=== PATIENT | female | born 1970 | race Caucasian/White ===

== ENCOUNTER 2016-06-05 08:59 | Day surgery (SDC) | payer OTHER ==
[2016-06-05] VITALS (8 sets, daily range): BP systolic 100–145; BP diastolic 68–83; PULSE 88–99; RESP 15–18; O2SAT 93–99
[~2016-06-05] VITALS: Ht 177.8 cm; Wt 75.8 kg
[~2016-06-05 08:59] MED LIST: ADAL40PE2 SQ; ARIP10TA14 PO; ASPI-973 PO; BUDE3CAP7 PO; CHOL500050 PO; CYA1000I IM; CYCL10TA9 PO; Clindamycin 900 mg/50 mL D5W IV ONE; DEXL30CA3 PO; DIPH1TAB PO; INFL100V IV; INSLIS SUBQ; LEVO75TA4 PO; LISI40TA PO; LORA2TAB PO; METO-274 PO; ONDA4TAB9 PO; OXYC-466 PO; PRAV40TA PO; SERT100T9 PO
[2016-06-05] MEDS ORDERED: Lactated Ringer's 1,000 ML IV ONE ×2 (09:00→11:46)
[2016-06-05] MEDS ORDERED: Propofol 10,000 mCg/mL 20 mL Inj ONE (09:00)
[2016-06-05] MEDS ORDERED: Ondansetron 2 mg/mL 2 mL Inj ONE (09:00)
[2016-06-05] MEDS ORDERED: Lidocaine PF 1% 30 mL Inj ONE (09:00)
[2016-06-05] MEDS ORDERED: GABA600T2 PO (09:56)
[2016-06-05] MEDS ORDERED: ASPI325T32 PO (09:56)
[2016-06-05 10:01] LABS: BASOPHILS % (AUTO) 0.5 % (0-3); EOSINOPHILS % (AUTO) 3.3 % (0-5); MONOCYTES % (AUTO) 9.9 % (4-12); Mean Corpuscular Hemoglobin 29.4 pg (27.0-35.0); Mean Corpuscular Volume 90.6 fL (81-100); NEUTROPHILS % (AUTO) 58.5 % (40-74); Platelet Count 300 bil/L (150-400)
--- NOTE | 2016-06-05 10:53 | PCM.HPANE ---
Patient Data Surgeon Admitting Provider: Attending Provider:Sly Cramer MD Primary Care Physician:Bart Mckeon MD Other Provider:Tu Nguyen Anesthesia Reason for Visit Left Carpal Tunnel Syndrome Ht/WT & BMI Height (Feet): 5 Height (Inches): 10.00 Weight (Kilograms): 75.8 Body Mass Index 23.00 Allergies Coded Allergies: Cephalosporins (Verified Allergy, Severe, Rash, 06/03/16) Penicillins (Verified Allergy, Severe, HIVES, 06/03/16) tetracycline (Verified Allergy, Severe, HIVES, 06/03/16) cephalexin (Verified Allergy, Intermediate, REDNESS, 06/03/16) Estrogens (Verified Allergy, Unknown, UNKNOWN, 06/03/16) Sulfa (Sulfonamide Antibiotics) (Verified Allergy, Unknown, UNKNOWN, ) divalproex sodium (Verified Allergy, Unknown, UNKNOWN, 06/03/16) hydromorphone (Verified Adverse Reaction, Severe, HALLUCINATIONS, 06/03/16) Uncoded Allergies: PROPRANOLOL HCL (Generic Allergy) (Allergy, Unknown, UNKNOWN, 06/03/16) Past Anesthesia History Anesthesia History: Positive for:: Anesthesia Reactions (REACTION TO DILAUDED) , Denies:: Abnormal Airway, Difficult Intubation, Fam Anesthesia Reaction, Fam Malignant Hypertherm, Malignant Hyperthermia Diabetes History Hx Diabetes?: Yes Type of Diabetes: Type I Glycemic Control: Insulin Pump Current Bedside Blood Glucose: 168 MRSA MRSA: No Medications Blood Thinner: Aspirin Hypertension Medication: Yes (LISINOPRIL) Home Meds Incl Beta Emeterio: Yes Date Beta Emeterio Taken: Jun 04, 2016 Time Beta Emeterio Taken: 0800 Reported Medications Gabapentin 600 Mg Wrlaof680 Mg PO BID Ref 0 06/05/16 Aspirin 325 Mg Xnrthe351 Mg PO #1 BOTTLE 06/05/16 Infliximab (Remicade)10 Mg/Ml Dzw856 Mg IV DIRECTED next dose is three weeks from now 04/21/16, then every 8 weeks 04/21/16 Cyanocobalamin (Cyanocobalamin Injection)1,000 Mcg/1 Ml Vial1,000 Mcg IM Monthly 04/21/16 Cholecalciferol (Vitamin D3) (Vitamin D)50,000 Unit CapsuleUnknown Dose PO 02/11/16 Aspirin 81 Mg Gxqgiw44 Mg PO DAILY Ref 0 12/13/16 Levothyroxine 75 Mcg Lmhcqn37 Mcg PO DAILY Ref 0 02/11/16 Dexlansoprazole ER (Dexilant)30 Mg Msvzuil72 Mg PO DAILY Ref 0 02/11/16 Metoprolol Succinate ER 100 Mg Tab.er.90b435 Mg PO DAILY Ref 0 02/11/16 oxyCODONE-Acetaminophen 10-325 mg 1 Each Tablet1 Tablet PO Q6H PRN For Pain Ref 0 02/07/16 Cyclobenzaprine 10 Mg Htyupw18 Mg PO HS PRN Spasm Ref 0 02/07/16 Insulin Human Lispro (HumaLOG U100 Insulin Vial)100 Unit/Ml Unit1 Unit SUBQ continuosly #1 VIAL Ref 0 Via pump 07/08/15 Ondansetron ODT (Zofran ODT)4 Mg Tab.rapdis4 Mg PO Q8 PRN For Nausea 03/06/14 Lorazepam 2 Mg Tablet2 Mg PO QID PRN For Anxiety 03/06/14 Aripiprazole (Abilify)10 Mg Jddxlt22 Mg PO DAILY 03/06/14 Lisinopril 40 Mg Gwdekx83 Mg PO DAILY 11/21/13 Budesonide EC 3 Mg Capdr...er3 Tab PO QAM PRN crohns 11/21/13 Diphenoxylate/Atropine 2.5-0.025 mg (Lomotil 2.5-0.025 mg)1 Each Tablet2 Each PO 4-5Xday PRN For Diarrhea or Loose Stool 11/21/13 Pravastatin 40 Mg Sevlud51 Mg PO DAILY 11/21/13 Sertraline HCl (Sertraline)100 Mg Ctnoye599 Mg PO DAILY 11/21/13 Discontinued Reported Medications Adalimumab (Humira Crohn's)40 Mg/0.8 Ml Pen.ij.kit0.8 Ml SQ weekly 04/02/15 History History of ENT Problems?: No HEENT History: Positive for:: Hearing Problem ([place] - MILD) Denies:: Abnormal Airway Cataracts Difficult Intubation Dysphagia Sinus Problem Denture Type: Full- Upper Full- Lower Hx of Heart Problems?: Yes Cardiovascular History: Positive for:: Chest Pain ( MPS WNL) Heart Murmur (HX OF BUT NONE NOTED ON PREOP H&P) Hypertension (HYPERLIPIDEMIA) Denies:: AICD Atrial Fibrillation Cardiac Surgery (Heart Catherization, 2013) Congestive Heart Failure Edema Irregular Heartbeat Pacemaker Thrombophlebitis Valvular Heart Disease Other Cardiac History: HX OF ANEMIA REQUIRES INTERMITTANT IRON INFUSIONS (ORAL IRON INEFFECTIVE) R/T REMAICADE INFUSIONS EVERY 8 WEEKS Hx of Respiratory Problem?: Yes Respiratory History: Positive for:: Tuberculosis (FINISHED LATENT TB TX 2016) Denies:: Asthma COPD Chest Surgery Cough Dyspnea Emphysema Hemoptysis Oxygen Administration Pneumonia Use of C-PAP Machine (HX OF SLEEP STUDY) Hx Neurologic Problems?: Yes Neurological History: Positive for:: Dizziness (DIZZINESS) Headaches (migranes botox injections last one 09/30/2015) Seizures (secondary to hypoglycemia) Denies:: Alzheimer's Disease CVA Dementia (+ COGNITIVE IMPAIRMENT) Parkinson's Disease Hx of GI Problems?: Yes Gastrointestinal History: Positive for:: Gall Bladder Disease (OLE) Gastroesphageal Reflux (HX PUD) Gastrointestinal Bleeding Heartburn Hiatal Hernia Rectal Bleeding (HX CROHN'S, HEMORRHOIDS) Denies:: Cirrhosis Diverticulitis Hepatitis Hx of Problems?: Yes Genitourinary History: Positive for:: Kidney Stones (HX OF) Urinary Tract Infection (HX OF) Female Hx: Denies:: Currently (S/P C/S X2) Endometriosis Pelvic Inflammatory Problems with Breasts? Skin History: Positive for:: History Skin Disorders? (skin issues with crohns currently in belly button) Denies:: Pressure Ulcers Hx Musculoskeletal Problems?: Yes Musculoskeletal History: Positive for:: Back Injury (spasms) Musculoskeletal Trauma (S/P BILAT ORIF WRISTS (GLF)) Denies:: Joint Replacement Hx of Psycho/Social Problems?: Yes Psycho Social History: Positive for:: Anxiety Hx Depression Suicide Attempt (2012) Denies:: Bipolar Disorder Hx Surgeries?: Yes (b/l orif wrists,c/s x2,hyst,nesha) Hx Any Other Health Problems?: Yes Other History: Positive for:: Endocrine Disease Hospitalization (ME, DKA) Thyroid Disease (Hypothyrodism) Denies:: Cancer History Blood Transfusions: Positive for:: Blood Transfusions Denies:: Blood Transfuse Reaction Hx Diabetes: YesBedside Blood Glucose: 168 Hx Alcohol Use: NoHx Substance Use: No Smoking Status: Current Every Day Smoker Heavy Tobacco Smoker Have You Smoked inLast 12 mo: Yes Stop/Bang Treated for Sleep Apnea?: No Do You Have a CPAP Machine?: No S-Snoring: Do You Snore Loudly: No T-Tired: feel tired, fatigued: Yes O-Obsered: Observed not breath: No P-Blood Pressure: treated: Yes B- Body Mass Index > 35 kg/m2: No A- Age over 50: No N- Neck Large Circumference: No G- Gender Male: No LARS Total Score: 2 LARS Risk Assessment: Low Risk, <3 Yes Risk Assessment Category Category 1A: Patient has history of documented sleep apnea, and HAS NOT received any narcotic, sedative or anesthesia administration during this stay. Category 1B: Patient has history of documented sleep apnea, and HAS received any narcotic , sedative or anesthesia administration during this stay Category 2: Patient has SUSPECTED Obstructive Sleep Apnea, and HAS received any narcotic , sedative or anesthesia administration during this stay. Category 3: Patient has SUSPECTED Obstructive Sleep Apnea and HAS NOT received narcotic, sedative or anesthesia administration during this stay. Category 4: Outpatient in Procedural Areas with known sleep apnea or who screen positive for High Risk via the STOP/BANG questionnaire. Exam Exam Vital Signs Vital Signs Date Time Temp Pulse Resp B/P Pulse Ox O2 Delivery O2 Flow Rate FiO2 06/05/16 09:31 36.4 99 18 145/83 97 Room Air General Appearance: Alert, Oriented X3, Cooperative, No Acute Distress HEENT/AIRWAY: MP 2 Lungs: Clear to Auscultation, Normal Air Movement Heart: Exam Unremarkable, Regular Rate/Rhythm, No Murmurs/Rubs/Gallops Meds/Labs/Diagnostics Admission Meds Current Medications Lactated Ringer's (Lr) 1,000 ml @ ud STK-MED ONCE IV Last administered on t 09:00; Start 06/05/16 at 09:00; Stop 06/05/16 at 09:12; Status DC Bedside Blood Glucose: 168 Labs Test 06/05/16 09:40 White Blood Count 7.8th/mm3 (3.8-10.1) Red Blood Count 4.49mil/mm3 (3.90-5.20) Hemoglobin 13.2g/dL (12.0-15.6) Hematocrit 40.7% (35.0-46.0) Mean Corpuscular Volume 90.6fL (81-100) Mean Corpuscular Hemoglobin 29.4pg (27.0-35.0) Mean Corpuscular Hemoglobin Concent 32.4% (32.0-37.0) Red Cell Distribution Width 17.7% (12.3-15.4) Platelet Count 300bil/L (150-400) Neutrophils (%) (Auto) 58.5% (40-74) Lymphocytes (%) (Auto) 27.7% (14-46) Monocytes (%) (Auto) 9.9% (4-12) Eosinophils (%) (Auto) 3.3% (0-5) Basophils (%) (Auto) 0.5% (0-3) Sodium Level 135mEq/L (134-144) Potassium Level 4.0mEq/L (3.5-5.2) Chloride Level 97mEq/L (97-108) Carbon Dioxide Level 23mmol/L (18-29) Blood Urea Nitrogen 13mg/dL (6-24) Creatinine 0.63mg/dL (0.57-1.00) Estimat Glomerular Filtration Rate 146mL/min (>59) Glucose Level 182mg/dL (60-99) Calcium Level 8.9mg/dL (8.5-10.1) Total Bilirubin < 0.2mg/dL (0.0-1.2) Aspartate Amino Transf (AST/SGOT) 14U/L (0-50) Alanine Aminotransferase (ALT/SGPT) 10U/L (0-32) Alkaline Phosphatase 60U/L (25-150) Total Protein 6.2g/dL (6.4-8.4) Albumin 3.7g/dL (3.4-5.0) Plan Impression Patient chart reviewed, patient interviewed and anesthestic plan with risks, benefits, and alternatives discussed, and informed consent obtained. NPO Status: mn ASA Physical Status: ASA3 Severe Disease Anesthetic Plan: GA Bene/Risks/Altern/Consents: Yes HP Complete Prior to Induction: Yes Gulshan Acevedo MD Jun 05, 2016 10:52
[2016-06-05] MEDS ORDERED: Bupivacaine-MPF 0.5% 30 mL Inj INFILTRATE ONE (11:07)
[2016-06-05] MEDS ORDERED: Lactated Ringer's 500 ML IV PRN (11:24)
[2016-06-05] MEDS ORDERED: Lactated Ringer's 1,000 ML IV SCH (11:24)
[2016-06-05] MEDS ORDERED: MetoCLOpramide 5 mg/mL 2 mL Inj IVPUSH PRN (11:25)
[2016-06-05] MEDS ORDERED: EPHEDrine Sulfate 50 mg/mL Inj IVPUSH PRN (11:25)
[2016-06-05] MEDS ORDERED: Ondansetron 2 mg/mL 2 mL Inj IVPUSH PRN (11:25)
[2016-06-05] MEDS ORDERED: Phenylephrine 10,000 mCg/mL Inj IVPUSH PRN (11:25)
--- NOTE | 2016-06-05 12:19 | PCM.ANEP2 ---
Post Anesthesia Evaluation ASA/CMS Post Anesthesia Date of Service: Jun 05, 2016 VS in Patient's Normal Range?: Yes Resp Stable; Airway Patent?: Yes CV Function & Hydration Stable: Yes Mental Status Recovered?: Yes Pain control Satisfactory?: Yes N/V Control Satisfactory?: Yes Gulshan Acevedo MD Jun 05, 2016 12:19
--- NOTE | 2016-06-05 12:19 | PCM.ANEP1 ---
Post Anesthesia Phase 1 PACU Phase 1 Assessment Date of Service: Jun 05, 2016 Vital Signs 36.1 106/74 101 18 100% FM Anesthetic Administered: GA Level of Alertness: Sleepy, easy to arouse RAMIREZ's with Equal Strength: Yes Pain: No Nausea or Vomiting: No Oxygen Delivery: Simple Mask Lungs: Clear to Auscultation, Normal Air Movement Gulshan Acevedo MD Jun 05, 2016 12:19
[2016-06-05] MEDS ORDERED: oxyCODONE-Acetamin 5-325 mg Tablet PO PRN (12:30)
--- NOTE | 2016-06-05 15:16 | OP ---
[address] [address] OPERATIVE REPORT PATIENT: FUENTES PIERRE : 1970 MR#: [id number] ADMIT: 06/05/2016 JOB ID: [id number] DATE OF SURGERY: 06/05/2016 PREOPERATIVE DIAGNOSIS(ES): Left carpal tunnel syndrome. ICD 10 code G 56.02. POSTOPERATIVE DIAGNOSIS(ES): Left carpal tunnel syndrome. ICD 10 code G 56.02. PROCEDURE: Left carpal tunnel release. CPT code 97590. SURGEON: Dr. Sly Cramer. ANESTHESIA: General. ESTIMATED BLOOD LOSS: 2 mL. SPONGE AND NEEDLE COUNT: Correct. COMPLICATIONS: None. INDICATIONS: This is a 45-year-old type 1 insulin dependent diabetic who sustained significantly comminuted left distal radial intra-articular fracture last year requiring open reduction and internal fixation. She when on to subsequently develop carpal tunnel symptoms on the left. She also had a significant right distal radial fracture but it was not quite as severe as the left. She did require surgery on the right wrist but she did not develop any carpal tunnel symptoms on the right. PROCEDURE IN DETAIL: Under adequate general anesthetic, well-padded pretested tourniquet was applied to the left upper extremity. The left arm was prepped and draped in a sterile fashion. The arm was elevated, exsanguinated, tourniquet inflated to 250 mmHg. Incision was fashioned just ulnar to the thenar crease. Care was taken to protect the palmar cutaneous branch of the median nerve as well as the ulnar nerve and artery more ulnarward. Palmar fascia was incised. Proximal portion of the transverse carpal ligament was incised. A [place] elevator was placed underneath the ligament. The ligament was released from a proximal to distal direction. Care was taken to protect the superficial palmar arch distally. The nerve was inspected, and found to be somewhat flattened with an hourglass deformity. The recurrent motor branch of the median nerve was identified. It was relatively large. The area was explored to rest assured that there was no compression of the recurrent motor branch under the fascia. Attention was next turned proximally to the antebrachial cutaneous fascia. The skin was gently elevated from the subcutaneous tissue. She had had a prior surgical incision that was slightly more radial. There was only a small amount of adhesion in this area. With the skin gently elevated and held with retractors, I was able to see the antebrachial cutaneous fascia under direct visualization. The wrist was placed in slight flexion to move the nerve out of the way and a [place] elevator was placed on the top of the nerve to protect the nerve. The antebrachial cutaneous fascia was then released with the scissors. Again, care was taken to protect the palmar cutaneous branch of the median nerve. The wound was irrigated with saline. Infiltrated with 0.5% plain Marcaine. Tourniquet was released. Afterwards there was some hyperemia noted in the nerve. Skin was reapproximated with interrupted horizontal mattress sutures of 4-0 nylon. Xeroform dry sterile dressings were applied and the patient was placed in a well-padded volar fiberglass splint. The patient was taken to recovery room in stable condition. Sponge and needle count correct. PLAN: The patient was discharged to home on clindamycin 300 mg p.o. q.8 hours and Percocet 10-325. She has been on Percocet 10-325 for other chronic pain issues. She is encouraged to do gentle range of motion of the fingers. She should avoid heavy gripping or lifting for six weeks. Will be seen in the office in two weeks for suture removal and may begin wrist range of motion and be just changed to a Velcro wrist support. CC: [email or web address] CC: Yamila Mcintyre
== END 2016-06-05 23:59 | disposition home or self-care (01) ==
LOC: SAS 08:59
PROVIDERS: ATTEND Orthopaedic Surgery
DX: G56.02 Carpal tunnel syndrome, left upper limb (principal); I10 Essential (primary) hypertension; E11.9 Type 2 diabetes mellitus without complications; R42 Dizziness and giddiness; K21.9 Gastro-esophageal reflux disease without esophagitis; F41.9 Anxiety disorder, unspecified; F17.210 Nicotine dependence, cigarettes, uncomplicated; Z79.82 Long term (current) use of aspirin; Z79.899 Other long term (current) drug therapy; Z79.4 Long term (current) use of insulin
CPT/HCPCS: 36415; 64721; 80053; 85025; J2405; J7120

== ENCOUNTER 2016-08-13 09:14 | Inpatient (IN) | payer OTHER ==
[~2016-08-13] VITALS: Ht 177.8 cm; Wt 76.1 kg
[2016-08-13] VITALS (10 sets, daily range): BP systolic 152–194; BP diastolic 74–98; PULSE 78–101; RESP 12–18; O2SAT 95–99
[~2016-08-13 09:14] MED LIST changes: -ADAL40PE2 SQ; +ASPI325T32 PO; -Clindamycin 900 mg/50 mL D5W IV ONE; +GABA600T2 PO
[2016-08-13] MEDS ORDERED: 0.9% Sodium Chloride 1,000 ML IV ONE (09:50)
[2016-08-13] MEDS ORDERED: Ondansetron 2 mg/mL 2 mL Inj IVPUSH ONE (09:50)
[2016-08-13] MEDS ORDERED: LORA2TAB PO (09:50)
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
[2016-08-13 10:24] LABS: BASOPHILS % (AUTO) 0.7 % (0-3); EOSINOPHILS % (AUTO) 2.7 % (0-5); MONOCYTES % (AUTO) 7.8 % (4-12); Mean Corpuscular Hemoglobin 30.2 pg (27.0-35.0); Mean Corpuscular Volume 92.4 fL (81-100); NEUTROPHILS % (AUTO) 55.7 % (40-74); Platelet Count 311 bil/L (150-400)
[2016-08-13 10:50] LABS: ERYTHROCYTE SEDIMENTATION RATE 7 mm/hr (0-32)
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
[2016-08-13] MEDS ORDERED: LidocaineVisc 2%:Antacid 1:1 10 mL Syringe PO ONE (12:30)
[2016-08-13] MEDS ORDERED: Promethazine Inj 25 MG in 0.9% Sodium Chloride-Pha MIX 100 ML IV ONE (14:25)
[2016-08-13] MEDS ORDERED: 0.9% Sodium Chloride 1,000 ML IV SCH (15:25)
[2016-08-13] MEDS ORDERED: Alum-Mag Hydrox-Simeth 30 mL Suspension PO PRN (15:25)
[2016-08-13] MEDS ORDERED: Ondansetron 2 mg/mL 2 mL Inj IVPUSH PRN (15:25)
--- NOTE | 2016-08-13 15:50 | NUR ---
Admission Patient admitted to [facility]. Oriented to room and floor, call light given. C/O Nausea, abdominal pain, and diarrhea. Patient given pain medication and anti-emetics in ED. RN explained to patient that she would page the doctor for pain medication. A/OX3, independent, RA. Denies any other needs at this time.
--- NOTE | 2016-08-13 16:53 | PCM.HPMED ---
Subjective Date of Service Aug 13, 2016 Primary Provider: Admitting Physician: Fely Gore DO Primary Care Physician: Bart Mckeon MD Attending Physician: Fely Gore DO Admit Status: From the Emergency Department, Remote Telemetry Chief Complaint: Abdominal pain History of Present Illness: 45-year-old white female with past medical history of type I diabetes, hypothyroidism, history of GI bleed, Crohn's disease that has diagnosed 2 years ago, hyperlipidemia, osteoporosis, suicide attempt in 2012 and chronic anemia is presenting today with the intra-abdominal pain that she describes as that radiates to the top of the stomach did do not to bottom. States that onset was 2 days ago. She waited until today because she has an appointment with Dr. Saleh but blood and Dr. Valiente saw her she asked her to go to the ER right away. In the ER morphine give her pain relief. Did work for nausea relief. She says that she is very depressed about not being able to attend her son's graduation. Patient was asked to turn off her pump in the ER as her blood sugars were low she says in the 30s. In the ER CT abdominopelvic with IV contrast showed antral thickening or antritis. Potassium was low at 3.4. A1c was 5.6 in March other than that her labs are basically unremarkable. Patient states that she really did not have much relief after her duodenal stitching surgery, she did find related to Remicade which was being given every 8 weeks but she only gets relief for 4 weeks so her GI doctor is trying considering increasing it to every 4 weeks. Patient is admitted for an upper endoscopy, as she is found to have antral thickening Review of Systems: Gen.: She is endorsing fluctuations in her weight patient has not been having fevers and malaise Eyes: no visual disturbances or blurring vision HEENT: No nose/throat drainage, no pain in ears or throat, no hearing loss Lymph: No lymph nodes noted Cardiac: No chest pain, orthopnea, PND, palpitations , pedal edema or dyspnea on exertion Pulmonary: Denies wheezing or bringing up of sputum worsening dyspnea and cough , left-sided chest pain GI: Positive for anorexia, diarrhea she went 4 times today, nausea, vomiting. Negative hematochezia, hematemesis : no dysuria hematuria urinary frequency or decrease in urine output Musculoskeletal: Joint swelling no joint pain no new muscle aches or back pain Neuro: No syncope, seizures no loss of consciousness no new focal weakness, numbness or tingling Psychiatric: Patient has chronic depression and states that she will not do anything to hurt herself now because of her children she has 4 kids but she is tired of taking care of her health Endocrine: No new heat or cold intolerances polyuria or polydipsia Hematology: No lymphadenopathy or easy bleeding or bruising noted skin: No new rashes, stasis dermatitis Other review of systems negative except as stated in history of present illness and above Allergies Coded Allergies: Cephalosporins (Verified Allergy, Severe, Rash, 06/03/16) Penicillins (Verified Allergy, Severe, HIVES, 06/03/16) tetracycline (Verified Allergy, Severe, HIVES, 06/03/16) cephalexin (Verified Allergy, Intermediate, REDNESS, 06/03/16) Sulfa (Sulfonamide Antibiotics) (Verified Allergy, Unknown, UNKNOWN, ) divalproex sodium (Verified Allergy, Unknown, UNKNOWN, 06/03/16) propranolol (Verified Allergy, Unknown, 06/05/16) fentanyl (Verified Adverse Reaction, Severe, Hallucinations, 06/05/16) hydromorphone (Verified Adverse Reaction, Severe, HALLUCINATIONS, 06/03/16) Home Medications Remicade mercaptopurine, aripiprazole, aspirin, Dexilant, insulin pump, lisinopril, lorazepam, metoprolol, pravastatin, Zoloft, budesonide when necessary by mouth, Lomotil when necessary, Zofran when necessary, oxycodone when necessary PMH Past medical history remarkable for type I diabetes for which she is currently on insulin pump,, hypothyroidism, history of GI bleed, Crohn's disease diagnosed 2 years ago, hyperlipidemia, history of GI bleed and GERD, osteoporosis, suicide attempt in 2012, chronic anemia Surgical History Surgical history includes cardiac Procedure, endoscopy in September 2015 that showed early ulceration with mild stenosis, status post dilation, subtle hiatal hernia Family History She lives with her and children in [place] she does not use any medication drugs she is a current smoker, denies alcohol Social History 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 No ptosis, PERRL Neck: No masses, trachea midline, no thyromegaly Lungs: CTA with normal respiratory effort, no crackles or wheezes CV: RRR, no murmurs/rubs/gallops, normal PMI GI: Soft, tenderness over epigastrium, normal bowel sounds MSK: Normal gait and station, no digital cyanosis Skin: Warm and dry. No rash, lesions or ulcers Psych: A&O X3, with appropriate affect Vascular pedal pulses are palpable Lab and Diagnostics Result Diagram: 08/13/16 1012 08/13/16 1012 X-Rays, CTs and MRIs CT abdominal and pelvic with contrast MPRESSION: Possible antritis of the stomach versus contraction. No bowel obstruction is seen. The no inflammatory changes are appreciated. Previous hysterectomy and cholecystectomy. Other cause of pain is not identified. Dictated by: Jose E Ratliff M.D. on 08/13/2016 at 11:50 Approved by: Jose E Ratliff M.D. on 08/13/2016 at 12:03 Assessment & Plan Severe epigastric pain: Likely due to antritis, present on admission -- NPO Diet as Dr. Young/Dr. Vance may take her for an EGD scope -- IV Protonix 40 twice a day before meals -- Zofran and Phenergan IV for nausea -- IV fluids 100 mL/h -- Pain control with morphine [employer] pump (LARS protocol) -- Consult GI, they are elevated. They will see the patient. I have called Dr. Vance and talked about the case he is to get back to me after he discusses with Dr. Young, patient's primary GI doctor. This is communicated to the patient. -- Unclear if she is going to EGD tonight per my conversation with GI. Type I diabetes, chronic active currently on insulin pump: She took a total of 24 units of Humalog last time she used it all day -- She was hypoglycemic in the ER -- A1c of 5.6 in March -- We will plan to give her 10 units of Lantus tonight, plus a sliding scale -- Plan to start her pump back up tomorrow if she is eating Hypertension, chronic active -- Enalapril 1.25 with parameters every 6 hours when necessary -- Hold lisinopril and metoprolol. As she is not keeping anything down -- Is not clear to me why she is on metoprolol will have her on tele monitoring in case she will need metoprolol IV tonight Depression, chronic active: -- Hold. Meds negative result and lorazepam by mouth Anxiety disorder, chronic active -- IV Ativan 1 mg every 12 when necessary Pain Evaluation: Pain not Controlled GI Prophylaxis: Proton Pump Inhibitor VTE Prophylaxis: Sub-Q Heparin (Unfractionated) Resuscitation Status: DNR/DNI:Do Not Resuscitate/Intubate ( is her alternate decision-maker) Time spent 45 min Fely Gore DO Aug 13, 2016 16:53
[2016-08-13] MEDS: Dextrose 5% 500 ML IV SCH (17:26)
[2016-08-13] MEDS ORDERED: Glucose 40% Oral Gel 15 Gm Tube PO PRN (18:10)
[2016-08-13] MEDS ORDERED: Dextrose 10% 250 ML IV PRN (18:10)
[2016-08-13] MEDS: Pantoprazole 4 mg/mL 10 mL Inj IVPUSH SCH (18:39)
[2016-08-13] MEDS: Promethazine Inj 25 MG in Dextrose 5%-Pha MIX 50 ML IV PRN (18:42)
[2016-08-13] MEDS: Morphine PCA 1 mg/mL 30 mL Inj IV PRN (20:51)
[2016-08-13] MEDS ORDERED: Insulin GLARgine 100 Unit/mL Syringe SUBQ SCH (21:00)
[2016-08-13] MEDS: Insulin LISPRO 300 Unit/3 mL Inj SUBQ SCH (22:00)
--- NOTE | 2016-08-13 23:01 | PCM.ADCARE ---
Advance Care Planning Note Purpose of Encounter: Establish goals of care for the patient Parties in Attendance: Patient and Dr. Gore Decisional Capacity: Good Subjective: She feels that becaus eof the poor quality of her life due to constant medical problems, she really should not push to be full code. Objective: She is young, 45 yo but appears to be burned out from her medical conditions that include Type 1 DM, Chron's mainly. She has done well in managing her Type 1 dM. I suspect there is an element of depression going on. Goals of Care Determinations: Patient may have a better outlook of her life if she benefits from advances in therapy for her Chron's disease. Plan: Will continue to insurance counselor her on continuing her depression therapy and continuing her psych counseling CODE STATUS: DNR/DNI Time Spent Adv.Care Plannin min Adv. Care Plan Documenation: Please see above, also documented in the H&P Fely Gore DO Aug 13, 2016 22:56
[2016-08-14] VITALS (13 sets, daily range): BP systolic 155–198; BP diastolic 82–117; PULSE 56–96; RESP 16–20; O2SAT 93–100
--- NOTE | 2016-08-14 00:02 | PROG NOTE ---
[address] [address] PROGRESS NOTE PATIENT: FUENTES PIERRE : 1970 MR#: [id number] ADMIT: 08/13/2016 JOB ID: [id number] DATE: 08/13/2016 SUBJECTIVE: This is a 45-year-old female with Crohn's on Remicade, who was in essence at her baseline status until two nights ago when she was awakened from sleep with severe epigastric pain. Yesterday morning she rated her pain at a 20/10 and thought she should go into the emergency department but realized she had an appointment with me today and in essence simply gutted it out at home. She has had a lot of vomiting associated with the pain which has demonstrated some radiation into the back. She has felt as though someone has been continuously kicking her in the stomach. Stools have continued and even today she has had two of them. No significant abdominal distention. No fevers or chills. Once she showed up in the GI clinic she was hypertensive and still felt as though she wanted to since her pain was so severe. I ended up sending her over to the emergency department for further evaluation. Blood work was remarkably unremarkable. Lactate was normal. CAT scan did not disclose any intra-abdominal catastrophe. I went over the scan personally and contacted Dr. Ratliff with Radiology, who reviewed it again with me over the telephone. He did not feel as though there was any evidence of free air or perforation anywhere. There definitely did seem to be some possible thickening in the gastric antrum region. The patient did not seem to have a great response, however, to a GI cocktail. MEDICATIONS: 1. The patient's last dose of Remicade was July 08. 2. She is additionally on 75 mg of mercaptopurine daily. 3. Additionally, she is written for Zoloft, pravastatin, pantoprazole, Zofran, lorazepam, Lisinopril, insulin, gabapentin, Abilify, metoprolol, oxycodone, sertraline, Lomotil, Zofran, levothyroxine. She denies any NSAIDs, although she is written for aspirin. ALLERGIES: 1. CEPHALOSPORIN. 2. PENICILLIN. 3. SULFA. 4. CEPHALEXIN. 5. DIVALPROEX. 6. FENTANYL. 7. HYDROMORPHONE. 8. PROPRANOLOL. 9. TETRACYCLINE. OBJECTIVE: Blood pressure is elevated. Pulse in the 80s. Afebrile. 96% on room air. Breathing comfortably. Appears uncomfortable. General: Alert, oriented, appropriate, cooperative, conversational. The patient's abdomen is not distended. Bowel sounds were a little hypoactive. No guarding. She did have some tenderness to palpation in the epigastric region. LABORATORIES: CBCs was entirely normal. Lipase was normal. Liver tests normal. Creatinine 0.58. Glucose was a little low at 48. Potassium 3.4. Otherwise, metabolic panel was normal. Lactate 0.9, magnesium 1.6. IMAGING: CAT scan as described above. ASSESSMENT AND RECOMMENDATIONS: A 45-year-old female with Crohn's. On her last upper endoscopy in September she demonstrated persistent duodenal ulceration and mild stenosis. She also additionally had some superficial gastric ulcerations. Her Crohn's predominantly involves the small bowel and it has been clearly demonstrated at upper endoscopy and capsule endoscopy. She has responded nicely to the Remicade and historically had a suboptimal response to Humira. The etiology for her subacute epigastric pain is a little unclear. The thickening in the antrum seen at CT scan certainly seems to be in the exact location of her tenderness. There does not at this point appear to be a perforation. No evidence of any acute pancreatitis. Ischemia or bowel infarctions quite unlikely and her lactate is entirely normal. Her CBC was normal as well. There is no evidence of a closed loop obstruction or any dilated loops for that matter. The patient has already had cholecystectomy. No evidence of a volvulus at present. I recommend for the time being a clear liquid diet (the patient reports that warm actually does alleviate some of the discomfort), IV analgesia and upper endoscopy for further clarification here. If there is any clinical deterioration, I would recommend rechecking the lactate and potentially even having the surgeon examine the patient. Otherwise, continue supportive care overnight. Dr. Vance has been kind enough to make arrangements for the endoscopic evaluation tomorrow.
--- NOTE | 2016-08-14 00:15 | NUR ---
Hypertension Pt BP at 2232 was 185/84 w/HR 80. Administered Vasotec. at 2355 BP went up to 194/91 w/HR 78. HS hospitalist paged. pt asymptomatic. will continue to monitor and provide care.
--- NOTE | 2016-08-14 03:38 | NUR ---
Blood Sugar BS at 0255 is 40, double checked again comes 41. pt stopped personal insulin pump. administered D10W 250 ml. BS right after D 1OW completed was 169.care continue.
[2016-08-14] MEDS ORDERED: 0.9% Sodium Chloride 1,000 ML IV SCH (05:00)
[2016-08-14] MEDS: Promethazine Inj 25 MG in Dextrose 5%-Pha MIX 50 ML IV PRN (05:11)
--- NOTE | 2016-08-14 07:19 | NUR ---
pain/Nausea pain and nausea well managed with IV CHAIRMAN PRESIDENT AND CHIEF EXECUTIVE OFFICER Morphine and IV phenergan.
[2016-08-14 07:39] LABS: Mean Corpuscular Hemoglobin 30.2 pg (27.0-35.0); Mean Corpuscular Volume 93.1 fL (81-100)
[2016-08-14] MEDS: Insulin LISPRO 300 Unit/3 mL Inj SUBQ SCH ×4 (08:00→22:00)
[2016-08-14] MEDS: Pantoprazole 4 mg/mL 10 mL Inj IVPUSH SCH (08:02)
[2016-08-14] MEDS ORDERED: Dextrose 5% 500 ML IV SCH (08:38)
--- NOTE | 2016-08-14 10:13 | PCM.PNMED ---
Subjective Date of Service Aug 14, 2016 Subjective Paient is seen and examined. She says she needs better pain control. She turned the pump back on last night, BG dropped. Pt to remain on pump until further notice. She appears to have better pain control and nausea than when she arrived. Exam Vital Signs Vital Sign - Last Date Time Temp Pulse Resp B/P Pulse Ox O2 Delivery O2 Flow Rate FiO2 08/14/16 09:56 87 08/14/16 05:49 36.7 16 178/95 95 Room Air Intake and Output 08/13/16 08/13/16 08/14/16 Cumulative From/Thru 15:00 23:00 07:00 08/13/16 09:17 - 08/14/16 06:29 Intake Total 1000 ml 1728 ml 2728 ml Balance 1000 ml 1728 ml 2728 ml Intake Oral 200 ml 200 ml IV Total 1000 ml 1528 ml 2528 ml # Voids 1 3 4 # Bowel Movements 0 0 Exam General: NAD, sitting up in bed, NAD HEENT: NCAT, Eyes: [place] conjunctivae. No ptosis, PERRL Neck: No masses, trachea midline, no thyromegaly Lungs: CTA with normal respiratory effort, no crackles or wheezes CV: RRR, no murmurs/rubs/gallops, normal PMI GI: Soft, tenderness over epigastrium, normal bowel sounds MSK: Normal gait and station, no digital cyanosis Skin: Warm and dry. No rash, lesions or ulcers Psych: A&O X3, with appropriate affect Vascular pedal pulses are palpable IVs and Medications IV Fluids NSS 100 cc/hr Medications Reviewed: Medications were reviewed in detail Lab and Diagnostics Result Diagram: 08/14/16 0703 08/14/16 0703 X-Rays, CTs and MRIs CT abdominal and pelvic with contrast MPRESSION: Possible antritis of the stomach versus contraction. No bowel obstruction is seen. The no inflammatory changes are appreciated. Previous hysterectomy and cholecystectomy. Other cause of pain is not identified. Dictated by: Jose E Ratliff M.D. on 08/13/2016 at 11:50 Approved by: Jose E Ratliff M.D. on 08/13/2016 at 12:03 Assessment & Plan Severe epigastric pain: Likely due to antritis, present on admission -- NPO Diet as Dr. Young/Dr. Alagugurusamy may take her for an EGD scope -- IV Protonix 40 twice a day before meals -- Zofran and Phenergan IV for nausea -- IV fluids 80 mL/h D5 NS+20 meq K after discussion with dR. Farley, appreciate his time -- Pain control with morphine TECHNICAL SALES SUPPORT SPECIALIST pump (LARS protocol) -- GI has done EGD this AM. They recommend surgical consult, trending lactate if patient deteriorates -- "IMPRESSION: 1. Clean-based antral ulcer. 2. Clean-based distal duodenal bulb ulcer. RECOMMENDATIONS: 1. Continue PPI. 2. Continue pain control. Will add Carafate to patient's antacid regimen and continue to follow. " -- Increased morphine pump to standard dose -- Carafate is added per their recs. Type I diabetes, chronic active currently on insulin pump: She took a total of 24 units of Humalog last time she used it all day -- She was hypoglycemic in the ER -- A1c of 5.6 in March -- Patient has started her pump back up 08/13 night: Patient started her pump back last evening w/o notice. Hypoglycemic overnight, recovered after protocol. Lantus 10 U is not given overnight, discontinued in the AM Hypertension, chronic active -- Restarted home meds after the EGD Depression, chronic active: -- Hold. -- IV Ativan 1 mg BIDPRN Anxiety disorder, chronic active -- IV Ativan 1 mg every 12 when necessary Due to complexity of care and risk involved, patient will be admitted for > [place] stay Pain Evaluation: Pain not Controlled GI Prophylaxis: Proton Pump Inhibitor VTE Prophylaxis: Sub-Q Heparin (Unfractionated) Resuscitation Status: DNR/DNI:Do Not Resuscitate/Intubate ( is her alternate decision-maker) Time spent 25 min Fely Gore DO Aug 14, 2016 10:13
--- NOTE | 2016-08-14 11:00 | PCM.HPANE ---
Patient Data Surgeon Admitting Provider:Fely Gore DO Attending Provider:Fely Gore DO Primary Care Physician:Bart Mckeon MD Other Provider: Reason for Visit Abd Pain Ht/WT & BMI Height (Feet): 5 Height (Inches): 10.00 Weight (Kilograms): 76.100 Body Mass Index 24.00 Allergies Coded Allergies: Cephalosporins (Verified Allergy, Severe, Rash, 06/03/16) Penicillins (Verified Allergy, Severe, HIVES, 06/03/16) tetracycline (Verified Allergy, Severe, HIVES, 06/03/16) cephalexin (Verified Allergy, Intermediate, REDNESS, 06/03/16) Sulfa (Sulfonamide Antibiotics) (Verified Allergy, Unknown, UNKNOWN, ) divalproex sodium (Verified Allergy, Unknown, UNKNOWN, 06/03/16) propranolol (Verified Allergy, Unknown, 06/05/16) fentanyl (Verified Adverse Reaction, Severe, Hallucinations, 06/05/16) hydromorphone (Verified Adverse Reaction, Severe, HALLUCINATIONS, 06/03/16) Past Anesthesia History Anesthesia History: Positive for:: Anesthesia Reactions (REACTION TO DILAUDED) , Denies:: Abnormal Airway, Difficult Intubation, Fam Anesthesia Reaction, Fam Malignant Hypertherm, Malignant Hyperthermia Diabetes History Hx Diabetes?: Yes (Type 1) Type of Diabetes: Type I Glycemic Control: Insulin Pump Current Bedside Blood Glucose: 119 MRSA MRSA: No Medications Blood Thinner: Aspirin Reported Medications Lorazepam 2 Mg Tablet2 Mg PO HS Ref 0 08/13/16 Infliximab (Remicade)10 Mg/Ml Ehy516 Mg IV DIRECTED [id number] 04/21/16 Aspirin 81 Mg Kfgile34 Mg PO DAILY Ref 0 02/11/16 Levothyroxine 75 Mcg Qlekkv36 Mcg PO DAILY Ref 0 02/11/16 Dexlansoprazole ER (Dexilant)30 Mg Vhuffbv42 Mg PO DAILY Ref 0 02/11/16 Metoprolol Succinate ER 100 Mg Tab.er.84j871 Mg PO DAILY Ref 0 02/11/16 oxyCODONE-Acetaminophen 10-325 mg 1 Each Tablet1 Tablet PO Q6H PRN For Pain Ref 0 02/07/16 Insulin Human Lispro (HumaLOG U100 Insulin Vial)100 Unit/Ml Unit1 Unit SUBQ continuosly #1 VIAL Ref 0 Via pump 07/08/15 Ondansetron ODT (Zofran ODT)4 Mg Tab.rapdis4 Mg PO Q8 PRN For Nausea 03/06/14 Aripiprazole (Abilify)10 Mg Lqaecu51 Mg PO DAILY 03/06/14 Lisinopril 40 Mg Jqhfdx86 Mg PO DAILY 11/21/13 Budesonide EC 3 Mg Capdr...er3 Tab PO QAM PRN crohns 11/21/13 Diphenoxylate/Atropine 2.5-0.025 mg (Lomotil 2.5-0.025 mg)1 Each Tablet2 Each PO 4-5Xday PRN For Diarrhea or Loose Stool 11/21/13 Pravastatin 40 Mg Tmgrxo65 Mg PO DAILY 11/21/13 Sertraline HCl (Sertraline)100 Mg Dgdsuv731 Mg PO DAILY 11/21/13 Discontinued Reported Medications Gabapentin 600 Mg Qlpdfl539 Mg PO BID Ref 0 06/05/16 Aspirin 325 Mg Bsnwiw522 Mg PO #1 BOTTLE 06/05/16 Cyanocobalamin (Cyanocobalamin Injection)1,000 Mcg/1 Ml Vial1,000 Mcg IM Monthly 04/21/16 Cholecalciferol (Vitamin D3) (Vitamin D)50,000 Unit CapsuleUnknown Dose PO 02/11/16 Cyclobenzaprine 10 Mg Cfozdp73 Mg PO HS PRN Spasm Ref 0 02/07/16 Lorazepam 2 Mg Tablet2 Mg PO QID PRN For Anxiety 03/06/14 History History of ENT Problems?: No HEENT History: Positive for:: Hearing Problem ([place] - MILD) Denies:: Abnormal Airway Cataracts Difficult Intubation Dysphagia Sinus Problem Denture Type: Full- Upper Full- Lower Teeth Condition: No Teeth Hx of Heart Problems?: Yes Cardiovascular History: Positive for:: Chest Pain Heart Murmur (HX) Hypertension Denies:: AICD Atrial Fibrillation Cardiac Surgery (Heart Catherization, 2013) Congestive Heart Failure Edema Irregular Heartbeat Pacemaker Thrombophlebitis Valvular Heart Disease Other History/Comments Patient denies CP; Greater than 4 mets Hx of Respiratory Problem?: Yes Respiratory History: Positive for:: Tuberculosis (FINISHED LATENT TB TX 2016) Denies:: Asthma COPD Chest Surgery Cough Dyspnea Emphysema Hemoptysis Oxygen Administration Pneumonia Use of C-PAP Machine (HX OF SLEEP STUDY) Other Resp Pertinent History: LARS Other History/Comment Tobacco use Hx Neurologic Problems?: Yes Neurological History: Positive for:: Dizziness Headaches (Migraines, botox injections 2016) Seizures (Secondary to hypoglycemia) Denies:: Alzheimer's Disease CVA Dementia Parkinson's Disease Hx of GI Problems?: Yes Hx of Problems?: Yes Genitourinary History: Positive for:: Kidney Stones Urinary Tract Infection Female Hx: Denies:: Currently Endometriosis Pelvic Inflammatory Problems with Breasts? Skin History: Positive for:: History Skin Disorders? (skin issues with crohns currently in belly button) Denies:: Pressure Ulcers Hx Musculoskeletal Problems?: Yes Musculoskeletal History: Positive for:: Back Injury (Spasms) Musculoskeletal Trauma (S/P BILAT ORIF WRISTS (GLF) Sep 2015) Denies:: Joint Replacement Hx of Psycho/Social Problems?: Yes Psycho Social History: Positive for:: Anxiety Hx Depression Suicide Attempt (2012) Denies:: Bipolar Disorder Hx Surgeries?: Yes (b/l orif wrists,c/s x2,hyst,nesha) Hx Any Other Health Problems?: Yes Other History: Positive for:: Endocrine Disease Hospitalization ([place], D[place]) Thyroid Disease (Hypothyrodism) Denies:: Cancer History Blood Transfusions: Denies:: Blood Transfuse Reaction Blood Transfusions (States she does not think so) Hx Diabetes: Yes (Type 1)Bedside Blood Glucose: 119 Occupation: she states at home Hx Alcohol Use: NoHx Substance Use: No Smoking Status: Current Every Day Smoker Heavy Tobacco Smoker Have You Smoked inLast 12 mo: YesApprox How Many Cigarettes/day: 20 Stop/Bang Treated for Sleep Apnea?: Yes Do You Have a CPAP Machine?: Yes Risk Assessment Category Category 1A: Patient has history of documented sleep apnea, and HAS NOT received any narcotic, sedative or anesthesia administration during this stay. Category 1B: Patient has history of documented sleep apnea, and HAS received any narcotic , sedative or anesthesia administration during this stay Category 2: Patient has SUSPECTED Obstructive Sleep Apnea, and HAS received any narcotic , sedative or anesthesia administration during this stay. Category 3: Patient has SUSPECTED Obstructive Sleep Apnea and HAS NOT received narcotic, sedative or anesthesia administration during this stay. Category 4: Outpatient in Procedural Areas with known sleep apnea or who screen positive for High Risk via the STOP/BANG questionnaire. Exam Exam Vital Signs Vital Signs Date Time Temp Pulse Resp B/P Pulse Ox O2 Delivery O2 Flow Rate FiO2 08/14/16 10:34 36.3 80 16 198/117 94 Room Air 08/14/16 09:56 87 08/14/16 05:49 36.7 80 16 178/95 95 Room Air 08/14/16 05:04 18 95 General Appearance: Alert, Oriented X3 HEENT/AIRWAY: MP 2, Neck Movement (FROM) Lungs: Clear to Auscultation, Clear to Percussion Heart: Exam Unremarkable, Regular Rate/Rhythm Meds/Labs/Diagnostics Admission Meds Current Medications Miscellaneous 10 ml 10 ml ONCE ONCE PO Last administered on 08/13/16 13:30; Start 08/13/16 at 12:30; Stop 08/13/16 at 12:31; Status DC Promethazine HCl 25 mg/Sodium Chloride 100.5 ml @ 301.5 mls/ hr ONCE ONCE IV Last administered on 08/13/16 14:45; Start 08/13/16 at 14:25; Stop 08/13/16 at 14:44; Status DC Sodium Chloride (Normal Saline) 1,000 ml @ 100 mls/hr Q10H IV Last administered on 08/13/16 16:18; Start 08/13/16 at 15:25; Stop 08/13/16 at 17:47 ; Status DC Pantoprazole 40 mg 40 mg BIDAC IVPUSH Last administered on 08/14/16 08:02; Start 08/13/16 at 17:26 Potassium Chloride/Dextrose/ Water (Potassium Chloride Inj/D5W) 105 ml @ 105 mls/hr ONCE ONCE IV Last administered on 08/13/16 19:16; Start 08/13/16 at 17 :45; Stop 08/13/16 at 18:44; Status DC Enalaprilat 1.25 mg 1.25 mg Q6H IVPUSH Last administered on 08/14/16 05:51; Start 08/13/16 at 18:00 Sodium Chloride (Normal Saline) 1,000 ml @ 125 mls/hr Q8H IV Last administered on 08/14/16 05:05; Start 08/14/16 at 05:00 Bedside Blood Glucose: 119 Labs Test 08/13/16 09:52 08/13/16 10:12 08/14/16 07:03 Hold Urine Received (Received) Neutrophils (%) (Auto) 55.7% (40-74) Lymphocytes (%) (Auto) 33.0% (14-46) Monocytes (%) (Auto) 7.8% (4-12) Eosinophils (%) (Auto) 2.7% (0-5) Basophils (%) (Auto) 0.7% (0-3) Erythrocyte Sedimentation Rate 7mm/hr (0-32) Hemoglobin A1c 6.7% (4.8-5.6) Lactic Acid Level 0.9mmol/L (0.4-2.0) Magnesium Level 1.6mg/dL (1.6-2.6) Lipase 12U/L (13-60) White Blood Count 6.0th/mm3 (3.8-10.1) Red Blood Count 4.51mil/mm3 (3.90-5.20) Hemoglobin 13.6g/dL (12.0-15.6) Hematocrit 42.0% (35.0-46.0) Mean Corpuscular Volume 93.1fL (81-100) Mean Corpuscular Hemoglobin 30.2pg (27.0-35.0) Mean Corpuscular Hemoglobin Concent 32.4% (32.0-37.0) Red Cell Distribution Width 14.2% (12.3-15.4) Platelet Count 277bil/L (150-400) Sodium Level 140mEq/L (134-144) Potassium Level 4.4mEq/L (3.5-5.2) Chloride Level 99mEq/L (97-108) Carbon Dioxide Level 27mmol/L (18-29) Blood Urea Nitrogen 4mg/dL (6-24) Creatinine 0.55mg/dL (0.57-1.00) Estimat Glomerular Filtration Rate 171mL/min (>59) Glucose Level 288mg/dL (60-99) Calcium Level 9.1mg/dL (8.5-10.1) Total Bilirubin 0.3mg/dL (0.0-1.2) Aspartate Amino Transf (AST/SGOT) 15U/L (0-50) Alanine Aminotransferase (ALT/SGPT) 10U/L (0-32) Alkaline Phosphatase 60U/L (25-150) Total Protein 6.3g/dL (6.4-8.4) Albumin 3.7g/dL (3.4-5.0) Plan Impression Patient chart reviewed, patient interviewed and anesthestic plan with risks, benefits, and alternatives discussed, and informed consent obtained. ASA Physical Status: ASA3 Severe Disease Anesthetic Plan: MAC Bene/Risks/Altern/Consents: Yes HP Complete Prior to Induction: Yes Jose E Koch MD Aug 14, 2016 11:00
[2016-08-14] MEDS ORDERED: Lactated Ringer's 1,000 ML IV ONE (11:33)
[2016-08-14] MEDS ORDERED: Ondansetron 2 mg/mL 2 mL Inj IVPUSH PRN (11:40)
--- NOTE | 2016-08-14 11:42 | PCM.ANEP1 ---
Post Anesthesia PACU Phase 1 Assessment Vital Signs Vital Signs Date Time Temp Pulse Resp B/P Pulse Ox O2 Delivery O2 Flow Rate FiO2 08/14/16 11:37 91 16 172/87 98 Room Air 08/14/16 10:34 36.3 80 16 198/117 94 Room Air 08/14/16 09:56 87 08/14/16 05:49 36.7 80 16 178/95 95 Room Air 08/14/16 05:04 18 95 Anesthetic Administered: MAC Level of Alertness: Awake, talking RAMIREZ's with Equal Strength: Yes Pain: Yes Pain Scale Score: 7 Nausea or Vomiting: No CV Function & Hydration Stable: Yes Airway Device: Oxygen Delivery: Room Air Lungs: Clear to Auscultation, Clear to Percussion PACU Phase 2 Assessment Complications: No Follow up Care: No Patient Instructions Provided: N/A Comments See anesth record for PACU VS. PACU VSS Jose E Koch MD Aug 14, 2016 11:42
[2016-08-14] MEDS ORDERED: Propofol 10,000 mCg/mL 20 mL Inj ONE (12:04)
[2016-08-14] MEDS: Morphine PCA 1 mg/mL 30 mL Inj IV PRN ×2 (12:16→17:20)
--- NOTE | 2016-08-14 12:36 | ENDO ---
[address] [address] ENDOSCOPY PROCEDURE PATIENT: FUENTES PIERRE : 1970 MR#: [id number] ADMIT: 08/13/2016 JOB ID: [id number] DATE OF SERVICE: 08/14/2016 PROCEDURE: Esophagogastroduodenoscopy. INDICATIONS: Abdominal pain. ANESTHESIA: Patient's ASA classification, Mallampati score, and medications as per Dr. Koch's anesthesia report. INSTRUMENT USED: [id number]. PROCEDURE DETAILS: After informed consent was obtained, the patient was brought into the GI suite where she was placed on oxygen via nasal cannula and monitored with continuous pulse oximeter, telemetry, and blood pressure monitoring. A time-out was performed. Then, she was placed in a left lateral decubitus position and medications were administered for sedation. The standard EGD scope was inserted through the bite block, and as we approached the antrum just proximal to the pylorus at approximately the 12 o'clock position, there was a clean-based what appeared to be a crescent-shaped ulcer measuring approximately 1 cm. Biopsies were obtained of the ulcer margins. Next, as we advanced the scope through the pylorus, in the distal portion of the duodenal bulb extending into the first portion of the duodenum, what appeared to be a clean-based ulcer was seen. However, as it involved the sweep, I was unable to view the ulcer in one image. The ulcer base appeared to be clean based. No active bleeding was seen from the ulcer. Multiple biopsies were obtained from the ulcer margins. I was able to advance the scope into the second portion of duodenum without difficulty. In the second portion, the mucosa appeared unremarkable. It was bile-stained. The scope was then withdrawn back into the body of the stomach. Retroflexion was performed which was unremarkable. Multiple random biopsies were obtained in the antrum and body the stomach. The GE junction was at approximately 41 cm. It was slightly irregular. Biopsies were not obtained. Remainder of the esophagus was otherwise unremarkable. IMPRESSION: 1. Clean-based antral ulcer. 2. Clean-based distal duodenal bulb ulcer. RECOMMENDATIONS: 1. Continue PPI. 2. Continue pain control. Will add Carafate to patient's antacid regimen and continue to follow. COMPLICATIONS: None. ESTIMATED BLOOD LOSS: Less than 5 mL.
--- NOTE | 2016-08-14 13:10 | NUR ---
One attempt by IVT, got in easily but the catheter would not thread all the way. The vein blew when attempt made to float IV in. Pt very adamant that her veins are not good, "none of them thread anymore," and she refused any further attempts at an IV start. Her verbalization indicated a degree of anger and frustration to me. RN notified, who will call the MD.
[2016-08-14] MEDS: Pantoprazole Inj 80 MG in 0.9% Sodium Chloride 80 ML IV SCH ×2 (13:18→21:56)
[2016-08-14] MEDS: D5 0.9% NaCl + KCl 20 mEq/L 1,000 ML IV SCH (14:28)
--- NOTE | 2016-08-14 14:36 | NUR ---
Social Work: Screening/Readiness for Discharge D: EMR reviewed. Pt is a 45 y/o female Ping for ABD pain per H&P. Pt's insurance is [employer] and PCP is Bart Mckeon MD. Pt's primary contact is spouse, Jassi Park ([phone]). Per MD in AM multi-disciplinary rounds, pt is likely to discharge today. does not foresee any discharge needs at this time. Pt lives at home with her spouse in [facility]. Pt will transport home when medically stable. SW does not anticipate any discharge needs at this time but will continue to follow if needs arise. A: Pt who is independent at baseline P: Pt will transport home when medically stable. LILLY does not anticipate any discharge needs at this time but will continue to follow if needs arise. PERICO Brand
[2016-08-14] MEDS: Dextrose 5% 500 ML IV SCH (17:26)
--- NOTE | 2016-08-14 17:28 | NUR ---
Pain/nausea/home med request Pt using Morphine WINCH STRIPPER, dose increased with effective results. Able to tolerate a CL diet with some pain post intake. Reports occasional nausea not requiring rx. 1720 pt requesting home Budesonide EC - text request made to
[2016-08-14] MEDS ORDERED: BUDESONIDE 3 MG PO PRN (17:30)
[2016-08-14] MEDS ORDERED: Lisinopril 40 Tablet PO SCH (17:40)
[2016-08-14] MEDS: MeTOProlol XL 50 mg ER24 Tablet PO SCH (18:08)
[2016-08-14] MEDS: Sucralfate 100 mg/mL 10 mL Suspension PO SCH (21:56)
[2016-08-15] VITALS (12 sets, daily range): BP systolic 153–178; BP diastolic 81–98; PULSE 59–81; RESP 15–20; O2SAT 94–97
[2016-08-15] MEDS: D5 0.9% NaCl + KCl 20 mEq/L 1,000 ML IV SCH (01:50)
[2016-08-15 05:14] LABS: Mean Corpuscular Hemoglobin 29.9 pg (27.0-35.0); Mean Corpuscular Volume 93.4 fL (81-100)
[2016-08-15] MEDS: Morphine PCA 1 mg/mL 30 mL Inj IV PRN (05:44)
--- NOTE | 2016-08-15 07:41 | PCM.HPMED ---
Subjective Date of Service Aug 14, 2016 Primary Provider: Admitting Physician: Fely Gore DO Primary Care Physician: Bart Mckeon MD Attending Physician: Fely Gore DO Chief Complaint: Abdominal pain History of Present Illness: 45-year-old white female with past medical history of type I diabetes, hypothyroidism, history of GI bleed, Crohn's disease that has diagnosed 2 years ago, hyperlipidemia, osteoporosis, suicide attempt in 2013 and chronic anemia is presenting today with the intra-abdominal pain that she describes as that radiates to the top of the stomach did do not to bottom. States that onset was 2 days ago. She waited until today because she has an appointment with Dr. Saleh but blood and Dr. Valiente saw her she asked her to go to the ER right away. In the ER morphine give her pain relief. Did work for nausea relief. She says that she is very depressed about not being able to attend her son's graduation. Patient was asked to turn off her pump in the ER as her blood sugars were low she says in the 30s. In the ER CT abdominopelvic with IV contrast showed antral thickening or antritis. Potassium was low at 3.4. A1c was 5.6 in March other than that her labs are basically unremarkable. Patient states that she really did not have much relief after her duodenal stitching surgery, she did find related to Remicade which was being given every 8 weeks but she only gets relief for 4 weeks so her GI doctor is trying considering increasing it to every 4 weeks. Patient is admitted for an upper endoscopy, as she is found to have antral thickening. She underwent an EGD this AM. She is still requiring a lot of pain medication and glucose monitoring. Review of Systems: Gen.: She is endorsing fluctuations in her weight patient has not been having fevers and malaise Eyes: no visual disturbances or blurring vision HEENT: No nose/throat drainage, no pain in ears or throat, no hearing loss Lymph: No lymph nodes noted Cardiac: No chest pain, orthopnea, PND, palpitations , pedal edema or dyspnea on exertion Pulmonary: Denies wheezing or bringing up of sputum worsening dyspnea and cough , left-sided chest pain GI: Positive for anorexia, diarrhea she went 4 times today, nausea, vomiting. Negative hematochezia, hematemesis : no dysuria hematuria urinary frequency or decrease in urine output Musculoskeletal: Joint swelling no joint pain no new muscle aches or back pain Neuro: No syncope, seizures no loss of consciousness no new focal weakness, numbness or tingling Psychiatric: Patient has chronic depression and states that she will not do anything to hurt herself now because of her children she has 4 kids but she is tired of taking care of her health Endocrine: No new heat or cold intolerances polyuria or polydipsia Hematology: No lymphadenopathy or easy bleeding or bruising noted skin: No new rashes, stasis dermatitis Other review of systems negative except as stated in history of present illness and above Allergies Coded Allergies: Cephalosporins (Verified Allergy, Severe, Rash, 06/03/16) Penicillins (Verified Allergy, Severe, HIVES, 06/03/16) tetracycline (Verified Allergy, Severe, HIVES, 06/03/16) cephalexin (Verified Allergy, Intermediate, REDNESS, 06/03/16) Sulfa (Sulfonamide Antibiotics) (Verified Allergy, Unknown, UNKNOWN, ) divalproex sodium (Verified Allergy, Unknown, UNKNOWN, 06/03/16) propranolol (Verified Allergy, Unknown, 06/05/16) fentanyl (Verified Adverse Reaction, Severe, Hallucinations, 06/05/16) hydromorphone (Verified Adverse Reaction, Severe, HALLUCINATIONS, 06/03/16) Home Medications Remicade mercaptopurine, aripiprazole, aspirin, Dexilant, insulin pump, lisinopril, lorazepam, metoprolol, pravastatin, Zoloft, budesonide when necessary by mouth, Lomotil when necessary, Zofran when necessary, oxycodone when necessary PMH type I diabetes for which she is currently on insulin pump,, hypothyroidism, history of GI bleed, Crohn's disease diagnosed 2 years ago, hyperlipidemia, history of GI bleed and GERD, osteoporosis, suicide attempt in 2013, chronic anemia Surgical History Surgical history includes cardiac Procedure, endoscopy in September 2015 that showed early ulceration with mild stenosis, status post dilation, subtle hiatal hernia Family History She lives with her and children in [place] she does not use any medication drugs she is a current smoker, denies alcohol Social History Occupation: she states at home Hx Alcohol Use: No Hx Substance Use: No Hx Tobacco Use: Yes (one pack per day) Smoking Status: Current Every Day Smoker, Heavy Tobacco Smoker Living Arrangement: with Family Exam Vital Signs Vital Sign - Last Date Time Temp Pulse Resp B/P Pulse Ox O2 Delivery O2 Flow Rate FiO2 08/15/16 05:40 16 94 08/15/16 05:36 76 153/97 Room Air 08/14/16 20:00 36.8 Intake and Output 08/14/16 08/14/16 08/15/16 Cumulative From/Thru 15:00 23:00 07:00 08/13/16 09:17 - 08/15/16 05:36 Intake Total 200 ml 2131 ml 1767 ml 6826 ml Output Total 1200 ml 1200 ml Balance 200 ml 2131 ml 567 ml 5626 ml Intake Oral 1230 ml 700 ml 2130 ml IV Total 200 ml 901 ml 1067 ml 4696 ml Output Urine Total 1200 ml 1200 ml # Voids 8 12 # Bowel Movements 0 0 Exam General: NAD, sitting up in bed, vomiting into the bag, crying HEENT: NCAT, Eyes: [place] conjunctivae. No ptosis, PERRL Neck: No masses, trachea midline, no thyromegaly Lungs: CTA with normal respiratory effort, no crackles or wheezes CV: RRR, no murmurs/rubs/gallops, normal PMI GI: Soft, tenderness over epigastrium, normal bowel sounds MSK: Normal gait and station, no digital cyanosis Skin: Warm and dry. No rash, lesions or ulcers Psych: A&O X3, with appropriate affect Vascular pedal pulses are palpable Lab and Diagnostics Result Diagram: 08/15/16 0500 08/15/16 0500 X-Rays, CTs and MRIs CT abdominal and pelvic with contrast MPRESSION: Possible antritis of the stomach versus contraction. No bowel obstruction is seen. The no inflammatory changes are appreciated. Previous hysterectomy and cholecystectomy. Other cause of pain is not identified. Dictated by: Jose E Ratliff M.D. on 08/13/2016 at 11:50 Approved by: Jose E Ratliff M.D. on 08/13/2016 at 12:03 Additional Diagnostics: 08/15/[address] Bajwa Assessment & Plan Severe epigastric pain: Likely due to antritis, present on admission -- IV Protonix 40 twice a day before meals -- Zofran and Phenergan IV for nausea -- IV fluids 80 mL/h D5 NS+20 meq K after discussion with dR. Farley, appreciate his time -- Pain control with morphine CASE BRIEFER pump (LARS protocol) -- GI has done EGD 08/14/16 AM. They recommend surgical consult, trending lactate if patient deteriorates -- "IMPRESSION: 1. Clean-based antral ulcer. 2. Clean-based distal duodenal bulb ulcer " -- Plan to turn the CASE BRIEFER off, try switching to oral oxycodone equivalent. She did return a 36 mg of morphine in 24 hours. She will be on 5-10 every 4 when necessary -- Carafate is added per GI recs. Crohn's disease, chronic, acute flare: -- Will take some time for pain to resolve, she is irritated because she needs to smoke. -- Restarted patient's medication budesonide by mouth, she placed with taking it when necessary at home.. We will make this scheduled -- She keeps asking about remicade infusion as she thinks she can get it every 4 weeks, I have told her this is upto her gI specialist. Chest Pain, acute on intermittent chronic: reported in the evening -- She gets these sometimes at home, lasted 1/2 hr and resolved w/o medical management -- EKG is ordered. I asked nurse to try GI cocktail and then nitro. -- I will go ahead and order cardiac enzymes as this may be atypical presentation of ACS in a young lady. Type I diabetes, chronic active currently on insulin pump: She took a total of 24 units of Humalog last time she used it all day -- She was hypoglycemic in the ER -- A1c of 5.6 in March, 6.7 during this admission -- Patient has started her pump back up 08/13 night: Patient started her pump back last evening w/o notice. Since changing to D5 normal saline no more reported hypoglycemic episodes on 08/14 -- Switched her diet to full liquids, as she is now eating, we will change fluids back to normal saline. on 08/15 am Hypertension, chronic active -- Restarted home meds after the EGD -- The blood pressure is still not controlled may need to add a new agent, consider chlorthalidone or amlodipine Depression, chronic active: -- Switched from IV Ativan to by mouth 2mg QHS home dose Anxiety disorder, chronic active -- Switched from IV Ativan to by mouth 2mg QHS home dose Patient Status: Patient was admitted under inpatient status with expected length of stay greater than two midnights due to severity of presenting symptoms , risk of adverse event, and complexity of treatment plan. She wants to go home on PO meds Pain Evaluation: Adequate Pain Control GI Prophylaxis: Proton Pump Inhibitor VTE Prophylaxis: Sub-Q Heparin (Unfractionated) Resuscitation Status: DNR/DNI:Do Not Resuscitate/Intubate ( is her alternate decision-maker) Time spent 40 min Pain Evaluation: Pain not Controlled GI Prophylaxis: Proton Pump Inhibitor VTE Prophylaxis: Sub-Q Heparin (Unfractionated) Resuscitation Status: DNR/DNI:Do Not Resuscitate/Intubate ( is her alternate decision-maker) Time spent 40 min Fely Gore DO Aug 15, 2016 07:41
[2016-08-15] MEDS: Insulin LISPRO 300 Unit/3 mL Inj SUBQ SCH ×4 (08:00→22:00)
[2016-08-15] MEDS: Pantoprazole Inj 80 MG in 0.9% Sodium Chloride 80 ML IV SCH ×2 (08:27→18:10)
[2016-08-15] MEDS: Sucralfate 100 mg/mL 10 mL Suspension PO SCH ×4 (08:27→22:34)
[2016-08-15] MEDS: MeTOProlol XL 50 mg ER24 Tablet PO SCH (08:27)
[2016-08-15] MEDS ORDERED: MeTOProlol XL 50 mg ER24 Tablet PO SCH (08:30)
--- NOTE | 2016-08-15 08:38 | PCM.PNMED ---
Subjective Date of Service Aug 15, 2016 Subjective Patient is seen and examined. States she fell behind the pain and now she is experiencing pain this am. she is not nauseated thiemilee m, she feels she can go home if her pain is under control. She wants to smoke and says decided to stay only because her pain. Exam Vital Signs Vital Sign - Last Date Time Temp Pulse Resp B/P Pulse Ox O2 Delivery O2 Flow Rate FiO2 08/15/16 05:40 16 94 08/15/16 05:36 76 153/97 Room Air 08/14/16 20:00 36.8 Intake and Output 08/14/16 08/14/16 08/15/16 Cumulative From/Thru 15:00 23:00 07:00 08/13/16 09:17 - 08/15/16 05:36 Intake Total 200 ml 2131 ml 1767 ml 6826 ml Output Total 1200 ml 1200 ml Balance 200 ml 2131 ml 567 ml 5626 ml Intake Oral 1230 ml 700 ml 2130 ml IV Total 200 ml 901 ml 1067 ml 4696 ml Output Urine Total 1200 ml 1200 ml # Voids 8 12 # Bowel Movements 0 0 Exam General: NAD, laying in bed,irate appearing HEENT: NCAT, poor dentition Eyes: [place] conjunctivae. No ptosis, PERRL Neck: No masses, trachea midline, no thyromegaly Lungs: CTA with normal respiratory effort, no crackles or wheezes CV: RRR, no murmurs/rubs/gallops, normal PMI GI: Soft, mild tendernes sover epigastrium, improved since admission MSK:no digital cyanosis Skin: Warm and dry. No rash, lesions or ulcers Psych: A&O X3, with irate affect IVs and Medications IV Fluids D5 NSS 80 cc/hr+20 meq K Medications Reviewed: Medications were reviewed in detail Medications Please see med list Lab and Diagnostics Result Diagram: 08/15/16 0500 08/15/16 0500 X-Rays, CTs and MRIs CT abdominal and pelvic with contrast MPRESSION: Possible antritis of the stomach versus contraction. No bowel obstruction is seen. The no inflammatory changes are appreciated. Previous hysterectomy and cholecystectomy. Other cause of pain is not identified. Dictated by: Jose E Ratliff M.D. on 08/13/2016 at 11:50 Approved by: Jose E Ratliff M.D. on 08/13/2016 at 12:03 Assessment & Plan Severe epigastric pain: Likely due to antritis, present on admission -- NPO Diet as Dr. Young/Dr. Vance may take her for an EGD scope -- IV Protonix 40 twice a day before meals -- Zofran and Phenergan IV for nausea -- IV fluids 80 mL/h D5 NS+20 meq K after discussion with dR. Farley, appreciate his time -- Pain control with morphine TILE LAYER pump (LARS protocol) -- GI has done EGD this AM. They recommend surgical consult, trending lactate if patient deteriorates -- "IMPRESSION: 1. Clean-based antral ulcer. 2. Clean-based distal duodenal ulcer. Recommendations: 1. Continue PPI. 2. Continue pain control. Will add Carafate to patient 's antacid regimen and continue to follow. " -- Plan to trend the TILE LAYER off, try switching to oral oxycodone equivalent. She did return a 36 mg of morphine in 24 hours. She will be on 5-10 every 4 when necessary -- Carafate is added per GI recs. -- GI Recs: "PPI BID, carafate QID, Remicaide as per Dr Young, started on Budesonide at patients request, which I believe may help, smoking cessation encouraged, currently smoking 1ppd" Crohn's disease, chronic, acute flareup: -- Restarted patient's medication budesonide by mouth, she placed with taking it when necessary at home. -- We will make this scheduled -- She keeps asking about remicade infusion as she thinks she can get it every 4 weeks, I have told her this is upto her gI specialist. -- Will take some time for pain to resolve, she is irritated because she needs to smoke. Chest Pain, intermittent chronic: reported in the evening -- She gets these sometimes at home, lasted 1/2 hr and resolved w/o medical management -- EKG is ordered. I asked nurse to try GI cocktail and then nitro. -- I will go ahead and order cardiac enzymes as this may be atypical presentation of ACS in a young lady. Type I diabetes, chronic active currently on insulin pump: She took a total of 24 units of Humalog last time she used it all day -- She was hypoglycemic in the ER -- A1c of 5.6 in March, 6.7 during this admission -- Patient has started her pump back up 08/13 night: Patient started her pump back last evening w/o notice. Since changing to D5 normal saline no more reported hypoglycemic episodes on 08/14 -- Switched her diet to full liquids, change fluids back to normal saline. on am Hypertension, chronic active -- Restarted home meds after the EGD -- The blood pressure is still not controlled may need to add a new agent, consider chlorthalidone or amlodipine Depression, chronic active: -- Switched from IV Ativan to by mouth 2mg QHS home dose Anxiety disorder, chronic active -- Switched from IV Ativan to by mouth 2mg QHS home dose Patient Status: Patient was admitted under inpatient status with expected length of stay greater than two midnights due to severity of presenting symptoms , risk of adverse event, and complexity of treatment plan. She wants to go home on PO meds Pain Evaluation: Adequate Pain Control GI Prophylaxis: Proton Pump Inhibitor VTE Prophylaxis: Sub-Q Heparin (Unfractionated) Resuscitation Status: DNR/DNI:Do Not Resuscitate/Intubate ( is her alternate decision-maker) Time spent 25 min Fely Gore DO Aug 15, 2016 08:38
--- NOTE | 2016-08-15 08:47 | NUR ---
jeimy pt requesting to have her daily scheduled ativan, request made to . Addendum: 08/15/16 at 0850 by LINDA ZUNIGA RN new order received.
[2016-08-15] MEDS: 0.9% Sodium Chloride 1,000 ML IV SCH (09:36)
[2016-08-15] MEDS: BUDESONIDE 3 MG PO SCH (09:44)
--- NOTE | 2016-08-15 14:23 | NUR ---
Diet Pt requesting to advance diet for dinner. pt able to tolerate [place] lunch with abdominal discomfort for 10 minutes, then ok. No nausea. Text paged this request. Addendum: 08/15/16 at 1429 by LINDA ZUNIGA RN new order received.
--- NOTE | 2016-08-15 14:50 | NUR ---
chest pain Pt reporting 05/08 chest sharp pressure at 1445. "This isn't anything new and lasts for a long period" [employer] states SR 64. notified. Addendum: 08/15/16 at 1518 by LINDA ZUNIGA RN new orders received. pt no longer having pain but reports lasted 30 minutes. Addendum: 08/15/16 at 1536 by LINDA ZUNIGA RN MD notified of EKG results and resolution of CP after 30 minutes and no medication.
--- NOTE | 2016-08-15 15:25 | NUR ---
smoking cessation Per GI MD request - smoking cessation info added to care notes for DC.
[2016-08-15] MEDS ORDERED: LidocaineVisc 2%:Antacid 1:1 10 mL Syringe PO ONE (15:40)
--- NOTE | 2016-08-15 16:51 | PCM.PNMED ---
Subjective Date of Service Aug 15, 2016 Subjective off pain BUDGET ANALYST, pain controlled with oral pain meds still tolerating warm liquid diet No BM Exam Vital Signs Vital Sign - Last Date Time Temp Pulse Resp B/P Pulse Ox O2 Delivery O2 Flow Rate FiO2 08/15/16 14:56 36.8 65 18 163/83 96 Room Air Intake and Output 08/14/16 08/14/16 08/15/16 Cumulative From/Thru 15:00 23:00 07:00 08/13/16 09:17 - 08/15/16 05:36 Intake Total 200 ml 2131 ml 1767 ml 6826 ml Output Total 1200 ml 1200 ml Balance 200 ml 2131 ml 567 ml 5626 ml Intake Oral 1230 ml 700 ml 2130 ml IV Total 200 ml 901 ml 1067 ml 4696 ml Output Urine Total 1200 ml 1200 ml # Voids 8 12 # Bowel Movements 0 0 Exam GEN- appears comfortable resp- clear bilaterally CVS-RRR abdomen- soft, non distended, diffuse tenderness, bowel sounds present Lab and Diagnostics Result Diagram: 08/15/16 0500 08/15/16 0500 X-Rays, CTs and MRIs CT abdominal and pelvic with contrast MPRESSION: Possible antritis of the stomach versus contraction. No bowel obstruction is seen. The no inflammatory changes are appreciated. Previous hysterectomy and cholecystectomy. Other cause of pain is not identified. Dictated by: Jose E Ratliff M.D. on 08/13/2016 at 11:50 Approved by: Jose E Ratliff M.D. on 08/13/2016 at 12:03 Assessment & Plan Acute Onset Abdominal pain -suspect likely from duodenal ulcers, this likely represents manifestation of Crohn's however with her chronic ASA 81mg daily use, PUD also a possibility though patient states duodenal ulcers have present for years -agree with oral pain meds -PPI BID -carafate QID Crohn's Disease - Remicaide as per Dr Young -started on Budesonide at patients request, which I believe may help -smoking cessation encouraged, currently smoking 1ppd GI Prophylaxis: Proton Pump Inhibitor VTE Prophylaxis: Sub-Q Heparin (Unfractionated) Resuscitation Status: DNR/DNI:Do Not Resuscitate/Intubate ( is her alternate decision-maker) Janny Vance MD Aug 15, 2016 16:51 -- Carafate is added per GI recs. Crohn's disease, chronic, acute flareup: -- Restarted patient's medication budesonide by mouth, she placed with taking it when necessary at home. -- We will make this scheduled Type I diabetes, chronic active currently on insulin pump: She took a total of 24 units of Humalog last time she used it all day -- She was hypoglycemic in the ER -- A1c of 5.6 in March, 6.7 during this admission -- Patient has started her pump back up 08/13 night: Patient started her pump back last evening w/o notice. Since changing to D5 normal saline no more reported hypoglycemic episodes -- Switch her diet to full liquids, change fluids back to normal saline Hypertension, chronic active -- Restarted home meds after the EGD -- The blood pressure is still not controlled may need to add a new agent, consider chlorthalidone Depression, chronic active: -- Hold. -- Switch from IV Ativan to by mouth Anxiety disorder, chronic active -- Switch from IV Ativan to by mouth Due to complexity of care and risk involved, patient will be admitted for > [place] stay GI Prophylaxis: Proton Pump Inhibitor VTE Prophylaxis: Sub-Q Heparin (Unfractionated) Resuscitation Status: DNR/DNI:Do Not Resuscitate/Intubate ( is her alternate decision-maker) Janny Vance MD Aug 15, 2016 16:51
[2016-08-15] MEDS ORDERED: _LORazepam 2 MG Tablet PO SCH (21:00)
[2016-08-15] MEDS ORDERED: LORazepam 2 mg Tablet PO SCH (21:00)
[2016-08-15 21:52] LABS: TROPONIN T 0.01 ug/L (0.0-0.011)
[2016-08-15] MEDS ORDERED: LORazepam 1 mg Tablet PO SCH (22:27)
--- NOTE | 2016-08-15 22:42 | NUR ---
Critical bedside glucose Beside sugar check at 33 patient actually asymptomatic just drowsy able to eat grahams and peanut butter and a soda rechecked @ 2039 reading of 73 normal per patient MD aware Addendum: 08/16/16 at 0127 by GLENYS RODRIGUEZ RN Spot check with lab draw glucose @ 103
[2016-08-16 00:42] VITALS: BP 144/77; PULSE 63; RESP 17; O2SAT 95
[2016-08-16 02:31] LABS: TROPONIN T 0.01 ug/L (0.0-0.011)
[2016-08-16] MEDS: Pantoprazole Inj 80 MG in 0.9% Sodium Chloride 80 ML IV SCH (03:47)
[2016-08-16] MEDS: 0.9% Sodium Chloride 1,000 ML IV SCH (05:12)
[2016-08-16 05:30] VITALS: PULSE 59
[2016-08-16 06:08] VITALS: BP 176/83; PULSE 80; RESP 18; O2SAT 93
[2016-08-16 07:47] LABS: Mean Corpuscular Hemoglobin 29.6 pg (27.0-35.0); Mean Corpuscular Volume 92.1 fL (81-100)
[2016-08-16] MEDS: Sucralfate 100 mg/mL 10 mL Suspension PO SCH ×2 (07:54→12:02)
[2016-08-16] MEDS: MeTOProlol XL 50 mg ER24 Tablet PO SCH (07:55)
[2016-08-16] MEDS: BUDESONIDE 3 MG PO SCH (07:57)
[2016-08-16] MEDS: Insulin LISPRO 300 Unit/3 mL Inj SUBQ SCH (07:59)
--- NOTE | 2016-08-16 08:14 | NUR ---
Headache Pt c/o of headache causing 7/10 pain. Pt received Roxicodone at 0600. Pt states that the [place] causes the headache. [place] sena and asked for Tylenol for pt. Addendum: 08/16/16 at 0944 by ASHLEY CATES RN LYNNE Raman Tylenol 650mg PO Q6.
[2016-08-16 08:36] LABS: Creatine Kinase 38 U/L (21-215); TROPONIN T < 0.010 ug/L (0.0-0.011)
[2016-08-16 08:37] VITALS: PULSE 76
[2016-08-16 09:46] VITALS: BP 179/78; PULSE 71; RESP 16; O2SAT 95
--- NOTE | 2016-08-16 11:20 | PCM.DC.MED ---
Discharge Summary Date of Service Aug 16, 2016 Dates of Hospitalization Date of Hospital Admission Aug 13, 2016 at 14:47 Date of Discharge: Aug 16, 2016 Providers: Admitting Physician: Fely Gore DO Primary Care Physician: Bart Mckeon MD Attending Physician: Fely Gore DO Diagnosis at Time of Discharge Diagnosis at Time of Discharge Crohn's disease, chronic, acute flareup Chest Pain, intermittent chronic: NO evidence of acute cardiac disease Type I diabetes, chronic active currently on insulin pump Hypertension, chronic active Depression, chronic active Anxiety disorder, chronic active Consultations Gastroenterology: Dr Elizabeth. Procedures XRay, CTs & MRIs CT abdominal and pelvic with contrast MPRESSION: Possible antritis of the stomach versus contraction. No bowel obstruction is seen. The no inflammatory changes are appreciated. Previous hysterectomy and cholecystectomy. Other cause of pain is not identified. Dictated by: Jose E Ratliff M.D. on 08/13/2016 at 11:50 Approved by: Jose E Ratliff M.D. on 08/13/2016 at 12:03 Brief History As per admission HPI, " 45-year-old white female with past medical history of type I diabetes, hypothyroidism, history of GI bleed, Crohn's disease that has diagnosed 2 years ago, hyperlipidemia, osteoporosis, suicide attempt in 2012 and chronic anemia is presenting today with the intra-abdominal pain that she describes as that radiates to the top of the stomach did do not to bottom. States that onset was 2 days ago. She waited until today because she has an appointment with Dr. Saleh but blood and Dr. Valiente saw her she asked her to go to the ER right away. In the ER morphine give her pain relief. Did work for nausea relief. She says that she is very depressed about not being able to attend her son's graduation. Patient was asked to turn off her pump in the ER as her blood sugars were low she says in the 30s. In the ER CT abdominopelvic with IV contrast showed antral thickening or antritis. Potassium was low at 3.4. A1c was 5.6 in March other than that her labs are basically unremarkable. Patient states that she really did not have much relief after her duodenal stitching surgery, she did find related to Remicade which was being given every 8 weeks but she only gets relief for 4 weeks so her GI doctor is trying considering increasing it to every 4 weeks. Patient is admitted for an upper endoscopy, as she is found to have antral thickening " Hospital Course Severe epigastric pain: Likely due to antritis, present on admission - Pt admitted in significant pain but in medically stable condition. She underwent upper endoscopy demonstrating the following as per report from consulted GI specialist: -- "IMPRESSION: 1. Clean-based antral ulcer. 2. Clean-based distal duodenal ulcer. Recommendations: 1. Continue PPI. 2. Continue pain control. Will add Carafate to patient 's antacid regimen and continue to follow. -- Pt was successfully transitioned off IV pain medications, stabilized with only oral based medications in addition to more intensive therapy provided for underlying condition discussed below. Crohn's disease, chronic, acute flareup: -- Restarted patient's medication budesonide by mouth, she placed with taking it when necessary at home. Appears to have benefitted her as pain significantly improved. -- IN addition, as noted above we will continue Carafate, PPI in addition to stool softening agent on discharge. - Pt will contact out patient GI physician , Dr Young , following discharge to arrange FU visit in next few weeks. Chest Pain, intermittent chronic: reported in the evening -- She gets these sometimes at home, lasted 1/2 hr and resolved w/o medical management -- EKG is ordered without evidence of ACS. -- Cardiac enzyme unremarkable. Type I diabetes, chronic active currently on insulin pump: She took a total of 24 units of Humalog last time she used it all day -- She was hypoglycemic in the ER -- A1c of 5.6 in March, 6.7 during this admission -- Patient has started her pump back up 08/13 night: Patient started her pump back last evening w/o notice. Since changing to D5 normal saline no more reported hypoglycemic episodes on 08/14 -- Switched her diet to full liquids, change fluids back to normal saline. on am - Pt well versed in treatment of this chronic condition, anticipate with resumption of regular eating pattern blood sugars will also stabilize. Hypertension, chronic active -- Restarted home meds after the EGD -- If blood pressure is still not controlled may need to add a new agent, consider chlorthalidone or amlodipine in out patient setting. Depression, chronic active: -- Switched from IV Ativan to by mouth 2mg QHS home dose Anxiety disorder, chronic active -- Switched from IV Ativan to by mouth 2mg QHS home dose Exam Vital Signs (Last) Date Time Temp Pulse Resp B/P Pulse Ox O2 Delivery O2 Flow Rate FiO2 08/16/16 09:46 36.9 71 16 179/78 95 Room Air Test 08/13/16 09:52 08/13/16 10:12 08/16/16 07:18 Hold Urine Received (Received) Neutrophils (%) (Auto) 55.7% (40-74) Lymphocytes (%) (Auto) 33.0% (14-46) Monocytes (%) (Auto) 7.8% (4-12) Eosinophils (%) (Auto) 2.7% (0-5) Basophils (%) (Auto) 0.7% (0-3) Erythrocyte Sedimentation Rate 7mm/hr (0-32) Hemoglobin A1c 6.7% (4.8-5.6) Lactic Acid Level 0.9mmol/L (0.4-2.0) Magnesium Level 1.6mg/dL (1.6-2.6) Lipase 12U/L (13-60) White Blood Count 7.9th/mm3 (3.8-10.1) Red Blood Count 4.53mil/mm3 (3.90-5.20) Hemoglobin 13.4g/dL (12.0-15.6) Hematocrit 41.7% (35.0-46.0) Mean Corpuscular Volume 92.1fL (81-100) Mean Corpuscular Hemoglobin 29.6pg (27.0-35.0) Mean Corpuscular Hemoglobin Concent 32.1% (32.0-37.0) Red Cell Distribution Width 13.9% (12.3-15.4) Platelet Count 283bil/L (150-400) Sodium Level 144mEq/L (134-144) Potassium Level 3.5mEq/L (3.5-5.2) Chloride Level 102mEq/L (97-108) Carbon Dioxide Level 28mmol/L (18-29) Blood Urea Nitrogen 4mg/dL (6-24) Creatinine 0.49mg/dL (0.57-1.00) Estimat Glomerular Filtration Rate 196mL/min (>59) Glucose Level 57mg/dL (60-99) Calcium Level 9.3mg/dL (8.5-10.1) Total Bilirubin < 0.2mg/dL (0.0-1.2) Aspartate Amino Transf (AST/SGOT) 20U/L (0-50) Alanine Aminotransferase (ALT/SGPT) 15U/L (0-32) Alkaline Phosphatase 57U/L (25-150) Total Creatine Kinase 38U/L (21-215) Troponin T < 0.010ug/L (0.0-0.011) Total Protein 5.9g/dL (6.4-8.4) Albumin 3.7g/dL (3.4-5.0) General: Alert, Oriented X3, Cooperative, Mild Distress Mouth: Mucous Membr Moist/[place] Cardiovascular: Regular Rate/Rhythm Abdomen: Tender, Non-distended, Other (No gaurding, positive bowel sounds. ) Neurological: Grossly Neurologically Intact Discharge Medications Discharge Medications Aripiprazole (Abilify) 10 Mg Tablet 10 MG PO DAILY (Reported) Aspirin (Aspirin) 81 Mg Tablet 81 MG PO DAILY (Reported) Dexlansoprazole ER (Dexilant) 30 Mg Capsule 30 MG PO DAILY (Reported) Infliximab (Remicade) 10 Mg/Ml Sdv 100 MG IV DIRECTED (Reported) j3mgxyt Insulin Human Lispro (HumaLOG U100 Insulin Vial) 100 Unit/Ml Unit 1 UNIT SUBQ continuosly (Reported) Via pump Levothyroxine (Levothyroxine) 75 Mcg Tablet 75 MCG PO DAILY (Reported) Lisinopril (Lisinopril) 40 Mg Tablet 80 MG PO DAILY (Reported) Lorazepam (Lorazepam) 2 Mg Tablet 2 MG PO HS (Reported) Metoprolol Succinate ER (Metoprolol Succinate ER) 100 Mg Tab.er.24h 100 MG PO DAILY (Reported) Pravastatin (Pravastatin) 40 Mg Tablet 40 MG PO DAILY (Reported) Sertraline HCl (Sertraline) 100 Mg Tablet 200 MG PO DAILY (Reported) As needed Budesonide EC (Budesonide EC) 3 Mg Capdr...er 3 TAB PO QAM PRN PRN crohns ( Reported) Diphenoxylate/Atropine 2.5-0.025 mg (Lomotil 2.5-0.025 mg) 1 Each Tablet 2 EACH PO 4-5Xday PRN PRN For Diarrhea or Loose Stool (Reported) Ondansetron ODT (Zofran ODT) 4 Mg Tab.rapdis 4 MG PO Q8 PRN PRN For Nausea ( Reported) oxyCODONE-Acetaminophen 10-325 mg (oxyCODONE-Acetaminophen 10-325 mg) 1 Each Tablet 1 TABLET PO Q6H PRN PRN For Pain (Reported) Followup Plan Disposition: Discharged home with improved pain and plan to FU with GI physician as instructed. Will call and notify office of hospitalization tomorrow. Discharge Diet: No restrictions Discharge Activity: No restrictions Follow-up Provider: Pravin Young MD Follow-up with PCP in: 2 weeks Time spent 40 minutes Vital Signs Vital Sign - Last Date Time Temp Pulse Resp B/P Pulse Ox O2 Delivery O2 Flow Rate FiO2 08/16/16 09:46 36.9 71 16 179/78 95 Room Air Intake and Output 08/15/16 08/15/16 08/16/16 Cumulative From/Thru 15:00 23:00 07:00 08/13/16 09:17 - 08/16/16 06:07 Intake Total 1870 ml 1197 ml 9893 ml Output Total 1560 ml 800 ml 3560 ml Balance 310 ml 397 ml 6333 ml Intake Oral 1060 ml 400 ml 3590 ml IV Total 810 ml 797 ml 6303 ml Output Urine Total 1560 ml 800 ml 3560 ml # Voids 12 # Bowel Movements 0 0 Lab and Diagnostics Result Diagram: 08/16/1618 08/16/16 0718 Cj Lao DO Aug 16, 2016 11:20
[2016-08-16] MEDS ORDERED: PANT40TA2 PO (11:30)
[2016-08-16] MEDS ORDERED: DOCU-41 PO (11:30)
[2016-08-16] MEDS ORDERED: BUDE3CAP7 PO (11:30)
[2016-08-16] MEDS ORDERED: OXYC-466 PO (11:30)
[2016-08-16] MEDS ORDERED: SUCR1ORA PO (11:30)
--- NOTE | 2016-08-16 11:32 | PCM.DIMED ---
Discharge Instructions Date of Service Aug 16, 2016 Dates of Hospitalization Aug 13, 2016 at 14:47 Discharge Diagnosis Discharge Diagnosis Crohn's disease, chronic, acute flareup Chest Pain, intermittent chronic: NO evidence of acute cardiac disease Type I diabetes, chronic active currently on insulin pump Hypertension, chronic active Depression, chronic active Anxiety disorder, chronic active Diet Discharge Diet: No restrictions Activity Discharge Activity: No restrictions Call your provider Call your provider for: Fever or Chills, Shortness of breath, Chest pain Patient Instructions Follow-up plan Call your GI physician, Dr Young tomorrow to notify him of hospitalization and arrange for FU Also contact your primary care physician for FU in next 2 weeks Follow-up Provider: Pravin Young MD Follow-up with PCP in: 2 weeks Cj Lao DO Aug 16, 2016 11:32
--- NOTE | 2016-08-16 12:20 | NUR ---
Discharge Pt IV dc'd, catheter intact. DC instructions given, all questions answered. Up to dress independently. at beside. Pt requested pain medication prior to dc. Roxicodone 10mg PO given. Pt A&O x4. Steady gait. Wanted to walk out without w/c. RN accompanied to elevator.
--- NOTE | 2016-08-17 15:13 | PATH ---
SURGICAL PATHOLOGY Attending Physician:Emil Vanessa CASE STATUS: Signed Out PATIENT NAME: FUENTES PIERRE PID: [id number] : 1970 DATE COLLECTED:08/14/2016 19:49 SPECIMEN: 1: Duodenum, Biopsy 2: Stomach, Antrum, Biopsy 3: Gastric, Biopsy CLINICAL HISTORY: 1). DUODENAL BULB ULCER BIOPSY 2). ANTRUM ULCER BIOPSY 3). RANDOM GASTRIC BIOPSY - TEST FOR H.PYLORI FINAL DIAGNOSIS: 1.DUODENAL BULB ULCER BIOPSY: DUODENAL MUCOSA WITH FOCAL AREA OF SUPERFICIAL ULCERATION. Negative for dysplasia and malignancy. 2.ANTRUM ULCER BIOPSY: ANTRAL MUCOSA WITH ACUTE AND CHRONIC INFLAMMATION AND NECROSIS CONSISTENT WITH ULCERATION. Immunohistochemistry for Helicobacter pending, to be reported by addendum. Negative for intestinal metaplasia. Negative for dysplasia and malignancy. 3.RANDOM GASTRIC BIOPSIES: MILD CHRONIC GASTRITIS INVOLVING FUNDIC MUCOSA. Negative for evidence of Helicobacter on H&E stain. Negative for intestinal metaplasia. Negative for dysplasia and malignancy. ICD10 K25.9 GROSS DESCRIPTION: The specimens are received in formalin, labeled with the patient's name, and sublabeled as the following: (1) duodenal Bx; (2) antrum Bx; (3) random gastric Bx. (1) The specimen consists of multiple fragments of cardenas-white glistening rubbery semitranslucent tissue (0.7 x 0.2 x 0.1 cm in aggregate). Section code: (1A) tissue. Specimen entirely submitted. (2) The specimen consists of multiple fragments of cardenas-white glistening rubbery semitranslucent tissue (0.5 x 0.4 x 0.1 cm in aggregate). Section code: (2A) tissue. Specimen entirely submitted. (3) The specimen consists of multiple fragments of cardenas-white glistening rubbery semitranslucent tissue (0.6 x 0.4 x 0.2 cm in aggregate). Section code: (3A) tissue. Specimen entirely submitted. 08/16/16 MICRO DESCRIPTION: See diagnosis. ICD-9 CODES: CPT CODES: 1: 36902 2: 82331, 00954 3: 12063, 29327 PROCEDURE/ADDENDA: Immunohistochemistry SPI Interpretation {Not Entered} Results-Comments Immunohistochemistry results 2.ANTRUM ULCER BIOPSY: NEGATIVE FOR HELICOBACTER PYLORI BY IMMUNOHISTOCHEMISTRY. This test was developed and its performance characteristics determined by [facility]. It has not been cleared or approved by the [place]. Food and Drug Administration. The FDA has determined that such clearance or approval is not necessary. This test is used for clinical purposes. It should not be regarded as investigational or for research. Electronically Signed Out Pravin Jiménez MD Electronically Signed Out Pravin Jiménez MD [facility] [address], [place] [address] Technical component performed at [facility], [address], [place], [address]
== END 2016-08-16 12:05 | disposition home or self-care (01) | DRG 387 ==
LOC: SED 09:14 → MOC 14:47 → OBSVTOIN 14:47 → MOC 15:35
PROVIDERS: ADMIT Family Medicine; ATTEND Family Medicine
PROC: 0DB68ZX Excision of Stomach, Via Natural or Artificial Opening Endoscopic, Diagnostic (ICD-10-PCS; principal; 2016-08-14 16:30)
DX: K50.018 Crohn's disease of small intestine with other complication (principal); R07.9 Chest pain, unspecified; E10.9 Type 1 diabetes mellitus without complications; I10 Essential (primary) hypertension; F41.8 Other specified anxiety disorders; E03.9 Hypothyroidism, unspecified; I25.10 Atherosclerotic heart disease of native coronary artery without angina pectoris; F17.210 Nicotine dependence, cigarettes, uncomplicated; E78.5 Hyperlipidemia, unspecified; K25.9 Gastric ulcer, unspecified as acute or chronic, without hemorrhage or perforation; K26.9 Duodenal ulcer, unspecified as acute or chronic, without hemorrhage or perforation; Z79.4 Long term (current) use of insulin; Z96.41 Presence of insulin pump (external) (internal)